=== PATIENT | female | born 1960 | race Caucasian/White ===

== ENCOUNTER → 2017-10-10 | Outpatient (CLI) | payer OTHER | LOC: M RAD 12:51 | DX: J33.0 Polyp of nasal cavity (principal) | CPT/HCPCS: 70486 ==

== ENCOUNTER → 2018-10-07 | Outpatient (REF) | payer OTHER ==
[2018-10-09 14:27] LABS: HPV HYBRID CAPTURE II Negative (Negative)
== END ==
LOC: M SFHCWAGY 10:29
PROVIDERS: ATTEND Nurse Practitioner Women's Health
DX: Z12.4 Encounter for screening for malignant neoplasm of cervix (principal)
CPT/HCPCS: 87624; G0123; G0463

== ENCOUNTER → 2019-05-08 | Outpatient (REF) | payer OTHER | LOC: M WHC 13:27 | PROVIDERS: ATTEND Nurse Practitioner Family | DX: R30.0 Dysuria (principal) | CPT/HCPCS: 81002; 87086; G0463 ==

== ENCOUNTER → 2019-06-19 | Outpatient (REF) | payer OTHER ==
[2019-06-19 17:36] LABS: C REACTIVE PROTEIN QUANTITATIV 0.34 MG/DL (0.00-0.30); TOTAL PROTEIN 7.4 GM/DL (6.4-8.2)
[2019-06-23 13:09] LABS: ALBUMIN % 62.9 % (55.8-66.1); ALPHA-1-GLOBULIN % 4.6 % (2.9-4.9); ALPHA-1-GLOBULINS 0.32 GM/DL (0.17-0.41); ALPHA-2-GLOBULINS % 9.1 % (7.1-11.8); BETA-1-GLOBULINS % 5.9 % (4.7-7.2); BETA-2-GLOBULINS % 4.8 % (3.2-6.5); GAMMA GLOBULIN % 12.7 % (11.1-18.8)
[2019-06-23 13:10] LABS: ALPHA-2-GLOBULINS 0.64 GM/DL (0.42-0.99); BETA-1-GLOBULINS 0.41 GM/DL (0.28-0.60); BETA-2-GLOBULINS 0.34 GM/DL (0.19-0.55); GAMMA GLOBULINS 0.89 GM/DL (0.65-1.58)
== END ==
LOC: M SFHCRHEU 14:00
PROVIDERS: ATTEND Internal Medicine
DX: R76.8 Other specified abnormal immunological findings in serum (principal); M25.50 Pain in unspecified joint
CPT/HCPCS: 36415; 84165; 85652; 86140; 86803; G0463

== ENCOUNTER → 2019-07-24 | Outpatient (CLI) | payer OTHER ==
[~2019-07-24] MED LIST: FISH1000 PO; ISOVUE-370 76% 100ML VIAL (Q9967) As Ordered ONE
--- NOTE | 2019-07-24 14:20 | REP ---
CT of the abdomen, pelvis not included, without and with IV contrast with multiphase imaging after IV contrast for renal lesion. Comparison is the abdomen MRI dated 10/13/2013. The visualized lung valenzuela are unremarkable. There is a 15 mm lesion in the right lobe of the liver inferiorly that demonstrates peripheral enhancement on the portal venous phase and central enhancement on the delayed equilibrium phase, compatible with hemangioma and unchanged from the comparison MRI. Additionally, there are multiple small 1 cm hepatic cysts, also unchanged. The hepatic parenchyma is otherwise unremarkable. The gallbladder, pancreas and spleen are normal size and unremarkable. The adrenals are unremarkable. There are multiple 1 cm or less bilateral renal cortical cysts similar to the comparison MRI. There are no renal masses. There is no hydronephrosis. There are no renal calculi. There is no perinephric stranding. The abdominal aorta is unremarkable. There is no periaortic adenopathy or mass. The visualized bowel loops and mesentery are unremarkable. Impression: There are multiple small 1 cm or less renal cortical cysts bilaterally, similar to the comparison MRI. There are no renal masses. There are no renal calculi. There is no hydronephrosis. There is no perinephric stranding. The kidneys are otherwise unremarkable. There are multiple small hepatic cysts, also unchanged. There is a 15 mm hepatic right lobe hemangioma, unchanged from the comparison MRI. Electronically Signed by Donny Zapien MD 07/24/2019 02:11 P
== END ==
LOC: M RAD 13:10
PROVIDERS: ATTEND Nurse Practitioner Family
DX: N28.9 Disorder of kidney and ureter, unspecified (principal)

== ENCOUNTER 2019-08-10 10:46 | Day surgery (SDC) | payer OTHER ==
[~2019-08-10] VITALS: Ht 156.2 cm; Wt 59.9 kg
[~2019-08-10 10:46] MED LIST changes: -ISOVUE-370 76% 100ML VIAL (Q9967) As Ordered ONE; +LIDOCAINE 2% INJ 100 MG/5 ML SDV (FOR ANES.) As Ordered ONE; +NS 1,000 ML IV ONE
[2019-08-10] MEDS ORDERED: propofoL 200 MG/20 ML VIAL As Ordered ONE ×3 (11:02→12:44)
[2019-08-10] MEDS ORDERED: fentaNYL 100 MCG/2 ML INJECTION (J3010) As Ordered ONE (12:00)
--- NOTE | 2019-08-10 12:39 | ROOR ---
Patient Name: Deepa Conrad Procedure Date: 08/10/2019 12:24 PM Date of : 1960 Age: 59 Room: [facility] [place] Gender: Female Note Status: Finalized Procedure: Upper GI endoscopy Indications: Abdominal pain in the right upper quadrant, Abnormal UGI series Providers: Bebeto AYOUB MD Referring MD: SIN PENG MD Requesting Provider: Medicines: Monitored Anesthesia Care Complications: No immediate complications. Procedure: Pre-Anesthesia Assessment: - The heart rate, respiratory rate, oxygen saturations, blood pressure, adequacy of pulmonary ventilation, and response to care were monitored throughout the procedure. The Endoscope was introduced through the mouth, and advanced to the second part of duodenum. The upper GI endoscopy was accomplished without difficulty. The patient tolerated the procedure well. Findings: The esophagus was normal. The stomach was normal. (compliant) The examined duodenum was normal. Impression: - Normal esophagus. - Normal stomach. - Normal examined duodenum. - No specimens collected. Recommendation: - Observe patient's clinical course. - Follow an antireflux regimen. Bebeto Ayoub MD Bebeto AYOUB MD 08/10/2019 12:38:52 PM Electronically signed by Bebeto AYOUB MD Number of Addenda: 0 Note Initiated On: 08/10/2019 12:24 PM Estimated Blood Loss: Estimated blood loss: none.
--- NOTE | 2019-08-10 12:59 | ROOR ---
Patient Name: Deepa Conrad Procedure Date: 08/10/2019 12:25 PM Date of : 1960 Age: 59 Room: [facility] [place] Gender: Female Note Status: Finalized Procedure: Colonoscopy Indications: Change in bowel habits Providers: Bebeto AYOUB MD Referring MD: SIN PENG MD Requesting Provider: Medicines: Monitored Anesthesia Care Complications: No immediate complications. Procedure: Pre-Anesthesia Assessment: - The heart rate, respiratory rate, oxygen saturations, blood pressure, adequacy of pulmonary ventilation, and response to care were monitored throughout the procedure. The Colonoscope was introduced through the anus and advanced to 10 cm into the ileum. The colonoscopy was performed without difficulty. The patient tolerated the procedure well. The quality of the bowel preparation was good. Findings: The perianal and digital rectal examinations were normal. Small Internal Hemorrhoids. The entire examined colon appeared normal on direct and retroflexion views. The terminal ileum appeared normal. Impression: - Small Internal Hemorrhoids. - The entire examined colon is normal on direct and retroflexion views. - The examined portion of the ileum was normal. - No specimens collected. Recommendation: - Use fiber, for example Citrucel, Fibercon, Konsyl or Metamucil. - Repeat colonoscopy in 10 years for screening purposes. Bebeto Ayoub MD Bebeto AYOUB MD 08/10/2019 12:59:12 PM Electronically signed by Bebeto AYOUB MD Number of Addenda: 0 Note Initiated On: 08/10/2019 12:25 PM Estimated Blood Loss: Estimated blood loss: none.
[2019-08-10 13:25] VITALS: BP 122/76
== END 2019-08-10 13:28 | disposition home or self-care (01) ==
LOC: M OPP 10:46
PROVIDERS: ATTEND Internal Medicine Gastroenterology
DX: R93.3 Abnormal findings on diagnostic imaging of other parts of digestive tract (principal); R19.4 Change in bowel habit; K64.8 Other hemorrhoids; R10.11 Right upper quadrant pain; E78.5 Hyperlipidemia, unspecified; R06.02 Shortness of breath; F41.9 Anxiety disorder, unspecified; Z78.0 Asymptomatic menopausal state; N28.1 Cyst of kidney, acquired; M54.89 Other dorsalgia; Z85.828 Personal history of other malignant neoplasm of skin; Z88.8 Allergy status to other drugs, medicaments and biological substances; Z88.5 Allergy status to narcotic agent
CPT/HCPCS: 43235; 45378; J3010

== ENCOUNTER → 2020-08-10 | Outpatient (CLI) | payer OTHER ==
[~2020-08-10] MED LIST changes: -LIDOCAINE 2% INJ 100 MG/5 ML SDV (FOR ANES.) As Ordered ONE; -NS 1,000 ML IV ONE
[2020-08-10 19:04] LABS: BASO % 0.5 % (0.0-1.0); EOS % 0.5 % (0.0-3.0); HEMATOCRIT 38.5 % (36.0-47.0); HEMOGLOBIN 12.4 g/dl (12.0-15.5); LYMPH # 2.1 10^3/uL (1.5-5.0); LYMPH % 27.5 % (24.0-44.0); MEAN CORPUSCULAR HEMOGLOBIN 28.4 pg (27.0-33.0); MEAN CORPUSCULAR HGB CONC 32.2 g/dl (32.0-36.5); MEAN CORPUSCULAR VOLUME 88.1 fl (80.0-96.0); MONO # 0.6 10^3/uL (0.0-0.8); MONO % 7.8 % (2.0-8.0); NEUTROPHILS # 4.9 10^3/uL (1.5-8.5); NEUTROPHILS % 63.3 % (36.0-66.0); PLATELET COUNT, AUTOMATED 269 10^3/uL (150-450); RED BLOOD COUNT 4.37 10^6/uL (4.00-5.40); WHITE BLOOD COUNT 7.8 10^3/uL (4.0-10.0)
[2020-08-10 19:24] LABS: ERYTHROCYTE SEDIMENTATION RATE 13 mm/hr (0-30)
[2020-08-10 19:30] LABS: ALBUMIN 3.9 GM/DL (3.2-5.2); BILIRUBIN,TOTAL 0.2 MG/DL (0.2-1.0); C REACTIVE PROTEIN QUANTITATIV 0.3 MG/DL (0.00-0.30); CALCIUM LEVEL 8.9 MG/DL (8.5-10.1); CREATININE FOR GFR 1.16 MG/DL (0.55-1.30); GLOMERULAR FILTRATION RATE 51.1 (>51); POTASSIUM SERUM 4.2 MEQ/L (3.5-5.1); RHEUMATOID FACTOR QUANT 21.6 IU/ML (<15.0); TOTAL PROTEIN 6.8 GM/DL (6.4-8.2)
== END ==
LOC: M WUC 15:21
PROVIDERS: ATTEND Internal Medicine
DX: M25.50 Pain in unspecified joint (principal)

== ENCOUNTER → 2023-05-09 | Outpatient (CLI) | payer OTHER | LOC: M SLEEP 20:00 | PROVIDERS: ATTEND Physician Assistant | DX: R06.83 Snoring (principal) ==